=== PATIENT | female | born 1960 | race Caucasian/White ===

== ENCOUNTER 2019-09-22 07:42 | Day surgery (SDC) | payer BC ==
[~2019-09-22 07:42] MED LIST: Lactated Ringers 1,000 ML IV SCH; Lidocaine 2% 5 ML SDV ONE; Midazolam 1 MG/ML 2 ML SDV ONE; Propofol 200 MG/20 ML SDV ONE; Sodium Chloride 0.9% 10 ML SDV IV PRN; Sodium Chloride 0.9% 10 ML Syringe FLUSH PRN; Sodium Chloride 0.9% 2.5 ML Syringe FLUSH PRN; fentaNYL 100 MCG/2 ML SDV ONE
--- NOTE | 2019-09-22 08:47 | PCM.PREANE ---
Preanesthetic Assessment - Anesthesia/Transfusion/Family Hx Anesthesia History: Prior Anesthesia Without Reaction Other Type of Anesthesia Reaction Comment: only after tonsillectomy at age 39 Family History of Anesthesia Reaction: No Transfusion History: No Prior Transfusion(s) Intubation History: Unknown - Review of Systems General: No Symptoms Pulmonary: No Symptoms Cardiovascular: No Symptoms Gastrointestinal: No Symptoms Neurological: No Symptoms Other: Reports: Anxiety - Physical Assessment NPO Status Date: 09/21/19 NPO Status Time: 23:00 Vital Signs: Last Vital Signs Temp 98.1 F 09/22/19 08:12 Pulse 78 09/22/19 08:12 Resp 16 09/22/19 08:12 BP 139/70 09/22/19 08:12 Pulse Ox 94 L 09/22/19 08:12 Height: 5 ft 9 in Weight: 136.531 kg ASA Class: 2 Mental Status: Alert & Oriented x3 Airway Class: Mallampati = 2 Dentition: Reports: Normal Dentition ROM/Head Extension: Full Lungs: Clear to Auscultation, Normal Respiratory Effort Cardiovascular: Regular Rate, Regular Rhythm - Allergies Allergies/Adverse Reactions: Allergies Allergy/AdvReac Type Severity Reaction Status Date / Time No Known Allergies Allergy Verified 09/16/19 14:37 - Blood Blood Available: No - Anesthesia Plan Pre-Op Medication Ordered: None - Acknowledgements Anesthesia Type Planned: General Anesthesia Pt an Appropriate Candidate for the Planned Anesthesia: Yes Alternatives and Risks of Anesthesia Discussed w Pt/Guardian: Yes Pt/Guardian Understands and Agrees with Anesthesia Plan: Yes Additional Comments: PMH: gerd, ibs, morbid obesity PLAN: tiva PreAnesthesia Questionnaire HEENT History: Reports: Allergic Rhinitis, Other (See Below) Other HEENT History: wears glasses/contacts, hx of seasonal allergies Gastrointestinal History: Reports: Chronic Constipation, GERD Other Gastrointestinal History: current dysphagia Psychiatric History: Reports: Depression Other Psychiatric History: just prescribed medication for depression but has not started taking it yet Endocrine/Metabolic History: Reports: Obesity/BMI 30+ - Past Surgical History Head Surgeries/Procedures: Reports: None HEENT Surgical History: Reports: Tonsillectomy GI Surgical History: Reports: Appendectomy Musculoskeletal Surgical History: Reports: Knee Replacement Other Musculoskeletal Surgeries/Procedures:: bilateral TKA with re-do on right and dislocation on right - SUBSTANCE USE Smoking Status *Q: Never Smoker Recreational Drug Use History: No - HOME MEDS Home Medications: Home Meds Cholecalciferol (Vitamin D3) [Vitamin D3] 1,000 unit PO DAILY 09/16/19 [History] Esomeprazole Magnesium [Nexium] 40 mg PO DAILY 09/16/19 [History] Psyllium Husk/Aspartame [Metamucil Fiber Singles Packet] 1 pack PO ASDIRECTED PRN 09/16/19 [History] - CURRENT (IN HOUSE) MEDS Current Meds: Current Medications Lactated Ringer's (Ringers, Lactated) 1,000 mls @ 125 mls/hr IV ASDIRECTED KALPANA Last Admin: 09/22/19 08:31 Dose: 125 mls/hr Sodium Chloride (Saline Flush) 10 ml FLUSH ASDIRECTED PRN PRN Reason: Keep Vein Open Sodium Chloride (Saline Flush) 2.5 ml FLUSH ASDIRECTED PRN PRN Reason: Keep Vein Open Sodium Chloride (Saline Flush) 10 ml FLUSH ASDIRECTED PRN PRN Reason: Keep Vein Open Sodium Chloride (Saline Flush) 2.5 ml FLUSH ASDIRECTED PRN PRN Reason: Keep Vein Open Sodium Chloride (Normal Saline) 10 ml IV ASDIRECTED PRN PRN Reason: IV Use Discontinued Medications Fentanyl (Sublimaze) Confirm Administered Dose 100 mcg .ROUTE .STK-MED ONE Stop: 09/22/19 07:12 Lidocaine (Xylocaine-Mpf 2%) Confirm Administered Dose 5 ml .ROUTE .STK-MED ONE Stop: 09/22/19 07:12 Midazolam HCl (Versed 1 Mg/Ml) Confirm Administered Dose 2 mg .ROUTE .STK-MED ONE Stop: 09/22/19 07:12 Propofol (Diprivan 20 Ml) Confirm Administered Dose 400 mg .ROUTE .STK-MED ONE Stop: 09/22/19 07:12
--- NOTE | 2019-09-22 09:50 | PCM.OPNOTE ---
- General Post-Op/Procedure Note Date of Surgery/Procedure: 09/22/19 Operative Procedure(s): Diagnostic EGD and colonoscopy Findings: Normal EGD, sigmoid colon polyps x 2 at 15 cm Pre Op Diagnosis: Dysphagia, family history of colon cancer Post-Op Diagnosis: Sigmoid colon polyps x 2 Anesthesia Technique: MAC Primary Surgeon: Daxa Rios Condition: Good
[2019-09-22 10:16] VITALS: BP 111/73; PULSE 98
--- NOTE | 2019-09-22 10:52 | PCM.POSTAN ---
POST ANESTHESIA ASSESSMENT - MENTAL STATUS Mental Status: Alert, Oriented - VITAL SIGNS Vital Signs: Last Vital Signs Temp 98.8 F 09/22/19 10:07 Pulse 98 09/22/19 10:07 Resp 16 09/22/19 10:07 BP 111/73 09/22/19 10:07 Pulse Ox 98 09/22/19 10:07 - RESPIRATORY Respiratory Status: Respiratory Rate WNL, Airway Patent, O2 Saturation Stable - CARDIOVASCULAR CV Status: Pulse Rate WNL, Blood Pressure Stable - GASTROINTESTINAL GI Status: No Symptoms - POST OP HYDRATION Hydration Status: Adequate & Stable
--- NOTE | 2019-09-22 10:52 | PCM48HPAN ---
Post Anesthesia Note - EVALUATION WITHIN 48HRS OF ANESTHETIC Vital Signs in Normal Range: Yes Patient Participated in Evaluation: Yes Respiratory Function Stable: Yes Airway Patent: Yes Cardiovascular Function Stable: Yes Hydration Status Stable: Yes Pain Control Satisfactory: Yes Nausea and Vomiting Control Satisfactory: Yes Mental Status Recovered: Yes Vital Signs: Last Vital Signs Temp 98.8 F 09/22/19 10:07 Pulse 98 09/22/19 10:07 Resp 16 09/22/19 10:07 BP 111/73 09/22/19 10:07 Pulse Ox 98 09/22/19 10:07
--- NOTE | 2019-09-23 18:17 | OR ---
SURGEON: DAXA RIOS MD DATE OF PROCEDURE: 09/22/2019 PREOPERATIVE DIAGNOSIS: Reflux, dysphagia, family history of colon cancer. POSTOPERATIVE DIAGNOSES: 1. Normal EGD. 2. Sigmoid colon polyps x2. 3. Prolapsed internal hemorrhoids. PROCEDURE PERFORMED: Diagnostic esophagogastroduodenoscopy and colonoscopy with biopsy and polypectomy. PRIMARY SURGEON: Daxa Rios MD. ANESTHESIA: MAC. INSTRUMENT USED: Olympus endoscope, colonoscope. EXTENT OF EXAM: To the second portion of duodenum, to the cecum. PREPARATION: Good. LIMITATIONS: None. INDICATION FOR EXAMINATION: The patient is a 58-year-old female who presents with complaints of dysphagia. She also has a family history of colon cancer. The decision was made to proceed with diagnostic EGD and colonoscopy. The patient and I discussed the procedure, expected perioperative course, and risks including bleeding, infection, or damage to surrounding structures including perforation. The patient verbalized understanding and wishes to proceed. PROCEDURE IN DETAIL: The patient was brought to the endoscopy suite and placed in the left lateral decubitus position. A time-out was completed verifying the patient's name, age, date of , allergies, and procedure to be performed. Monitored anesthesia care was induced and continuous oxygen was provided via nasal cannula throughout the procedure. A bite block was placed in the patient's mouth. Once adequate sedation was achieved, a well-lubricated endoscope was placed in the patient's mouth and advanced under direct visualization to the second portion of duodenum. This appeared normal and a photograph was taken. The scope was then straightened out and fully withdrawn while examining the color, texture, anatomy, and integrity of mucosa of the upper GI tract. The duodenum appeared normal. A biopsy was taken here using a cold biopsy forceps. The scope was then brought into the stomach and a photograph taken of the pylorus and GE junction, which appeared anatomically normal. The gastric mucosa appeared free of any gross inflammation or ulceration. Biopsies were taken of the gastric antrum, body, and fundus, and sent for histologic review and H. pylori testing. The scope was then brought into the distal esophagus and a photograph was taken of the GE junction. This appeared normal. I took a biopsy of the esophageal mucosa 1 cm above the GE junction. The remainder of the esophagus was free of pathology. The scope was removed and this portion of procedure terminated. A digital rectal exam was performed. The patient was noted to have prolapsed internal hemorrhoids. A well-lubricated endoscope was placed in the patient's rectum and advanced under direct visualization to the level of the cecum. The cecum was identified by both visual and anatomic landmarks. A photograph was taken of the cecal cap as well as with the scope retroflexed within the cecum. Scope was then fully withdrawn while examining the color, texture, anatomy, and integrity of the mucosa from the cecum to the anal canal. The patient was found to have two pedunculated polyps within the distal sigmoid colon. These were right next to one another. They were both removed using a hot loop snare. There were sent to Pathology, labeled as sigmoid colon polyp #1 and #2. The scope was then brought into the rectum and retroflexed to allow visualization of the anal canal opening. This appeared normal and a photograph was taken. The scope was then straightened out and fully withdrawn. The cecum to anus time was 13 minutes. The patient tolerated the procedure well and was transferred to the PACU in stable condition. ENDOSCOPIC DIAGNOSES: 1. Normal EGD. 2. Sigmoid colon polyps x2. 3. Prolapsed internal hemorrhoids. RECOMMENDATIONS: Follow up in clinic in 2 weeks. CAMDEN REBOLLAR /[id number]
== END 2019-09-22 10:40 | disposition home or self-care (01) ==
LOC: MW.SDS 07:42
PROVIDERS: ATTEND Surgery
DX: D12.5 Benign neoplasm of sigmoid colon (principal); K64.8 Other hemorrhoids; K29.80 Duodenitis without bleeding; K21.9 Gastro-esophageal reflux disease without esophagitis; F41.8 Other specified anxiety disorders; E78.5 Hyperlipidemia, unspecified; E66.01 Morbid (severe) obesity due to excess calories; Z68.41 Body mass index [BMI] 40.0-44.9, adult; Z80.0 Family history of malignant neoplasm of digestive organs; Z79.899 Other long term (current) drug therapy
CPT/HCPCS: 43239; 45385; J2001; J2250; J2704; J3010; J7120; 88305; 88312

== ENCOUNTER 2020-10-03 12:22 | Emergency (ER) | payer BC ==
--- NOTE | 2020-10-03 12:39 | EDM.PDOC ---
ED HPI GENERAL MEDICAL PROBLEM - General Chief Complaint: Lower Extremity Injury/Pain Stated Complaint: LEFT LEG PAIN Time Seen by Provider: 10/03/20 12:24 Source of Information: Reports: Patient History Limitations: Reports: No Limitations - History of Present Illness INITIAL COMMENTS - FREE TEXT/NARRATIVE: HISTORY AND PHYSICAL: History of present illness: Patient is a 60-year-old female who presents to the emergency room today with complaints of left meek pain. She states over the weekend she had did a lot of walking around the mall, more physical activity than she is accustomed to. Today she noticed some bruising and soft tissue swelling to the anterior aspect of the left lower extremity. She states she has a friend who is a nurse and told her she was concerned she could have a blood clot or cellulitis. Patient states she has a longstanding history of anxiety and depression and feels "very anxious that something is wrong". Patient denies any fever, chills, headache, change in vision, syncope or near syncope. Denies any chest pain, back pain, shortness of breath or cough. Denies any abdominal pain, nausea, vomiting, diarrhea, constipation or dysuria. Has not noted any blood in urine or stool. Patient has been eating and drinking appropriately. Review of systems: As per history of present illness and below otherwise all systems reviewed and negative. Past medical history: As per history of present illness and as reviewed below otherwise noncontributory. Surgical history: As per history of present illness and as reviewed below otherwise noncon tributory. Social history: See social history for further information Family history: As per history of present illness and as reviewed below otherwise noncontributory. Physical exam: General: Well developed and well nourished 60-year-old female. Alert and orientated x 3. Nontoxic in appearance and in no acute distress. Vital signs have been reviewed by me. Nursing notes were reviewed. HEENT: Atraumatic, normocephalic, pupils equal and reactive bilaterally, negative for conjunctival pallor or scleral icterus, mucous membranes moist, neck supple, nontender, trachea midline. No drooling or trismus noted. No meningeal signs. No hot potato voice noted. Lungs: Clear to auscultation, breath sounds equal bilaterally, chest nontender. Normal work of breathing, no accessory muscles used. Heart: S1S2, regular rate and rhythm without overt murmur Abdomen: Soft, obese, nontender. Negative for masses or costovertebral tenderness. Skin: Superficial bruising to anterior left meek. Chronic discoloration to bilateral ankles. Remaining skin is intact, warm, dry. No lesions or rashes noted. Hematologic: No petechiae or purpra. Mucosa appropriate color and normal nail bed color and refill. Extremities: Atraumatic, moves all extremities per self without difficulty or deficits, strong pedal and pretibial pulses laterally, negative for cords or calf pain. + CMS. Neurovascular unremarkable. Neuro: Awake, alert, oriented. Cranial nerves II through XII unremarkable. Cerebellum unremarkable. Motor and sensory unremarkable throughout. Exam nonfocal. Psychiatric: Mood and affect are appropriate. Normal thought process. Answering questions appropriately. Notes: Lab work and U/S are unremarkable. I have talked with the patient about today's findings, in addition to providing specific details for plan of care. Reassessment at the time of disposition demonstrates that the patient is in no acute distress. The patient is stable for discharge, counseling was provided and we discussed in great detail signs and symptoms that would prompt them to return to the Emergency Department. Medication, follow up and supportive care measures were reviewed and discussed. Voices understanding and is agreeable to plan of care. Denies any further questions or concerns at this time. Diagnostics: CBC, BMP, Venous U/S Therapeutics: None Prescription: None Impression: Lower extremity superficial bruising, left Plan: 1. Today your lab work and ultrasound were reassuring, they were all within normal limits. The pain and bruising are likley due from 'over doing' physical activity over the weekend. Rest, ice and elevate the lower extremities. Make sure you have good supportive tennis shoes for physical activity in the future. 2. Tylenol and or Ibuprofen as needed for discomfort. 3. We encourage you to follow up with your primary care provider and/or recommended specialist in the next few days for re-evaluation and further care/management. If your symptoms should worsen, new symptoms develop or any of the signs and symptoms we discussed should arise please return to the emergency room or call 911 (if needed). Definitive disposition and diagnosis as appropriate pending reevaluation and review of above. left leg Pain Score (Numeric/FACES): 3 - Related Data Allergies Allergy/AdvReac Type Severity Reaction Status Date / Time No Known Allergies Allergy Verified 09/16/19 14:37 Home Meds: Home Meds Cholecalciferol (Vitamin D3) [Vitamin D3] 1,000 unit PO DAILY 09/16/19 [History] Esomeprazole Magnesium [Nexium] 40 mg PO DAILY 09/16/19 [History] Psyllium Husk/Aspartame [Metamucil Fiber Singles Packet] 1 pack PO ASDIRECTED PRN 09/16/19 [History] Past Medical History HEENT History: Reports: Allergic Rhinitis, Other (See Below) Other HEENT History: wears glasses/contacts, hx of seasonal allergies Gastrointestinal History: Reports: Chronic Constipation, GERD Other Gastrointestinal History: current dysphagia Psychiatric History: Reports: Depression Other Psychiatric History: just prescribed medication for depression but has not started taking it yet Endocrine/Metabolic History: Reports: Obesity/BMI 30+ - Past Surgical History Head Surgeries/Procedures: Reports: None HEENT Surgical History: Reports: Tonsillectomy GI Surgical History: Reports: Appendectomy Musculoskeletal Surgical History: Reports: Knee Replacement Other Musculoskeletal Surgeries/Procedures:: bilateral TKA with re-do on right and dislocation on right Social & Family History - Family History Family Medical History: No Pertinent Family History Endocrine/Metabolic: Reports: Obesity/MBI 30+ - Caffeine Use Caffeine Use: Reports: None Review of Systems - Review of Systems Review Of Systems: Comprehensive ROS is negative, except as noted in HPI. ED EXAM, GENERAL - Physical Exam Exam: See Below (See dictation) Course - Vital Signs Last Recorded V/S: Last Vital Signs Temp 97 F 10/03/20 12:35 Pulse 82 10/03/20 13:52 Resp 16 10/03/20 13:52 BP 151/65 H 10/03/20 13:52 Pulse Ox 95 10/03/20 13:52 - Orders/Labs/Meds Labs: Laboratory Tests 10/03/20 10/03/20 Range/Units 12:55 12:55 WBC 8.55 (4.0-11.0) K/uL RBC 4.76 (4.30-5.90) M/uL Hgb 14.1 (12.0-16.0) g/dL Hct 45.0 (36.0-46.0) % MCV 94.5 (80.0-98.0) fL MCH 29.6 (27.0-32.0) pg MCHC 31.3 (31.0-37.0) g/dL RDW Std Deviation 45.9 (28.0-62.0) fl RDW Coeff of Anila 13 (11.0-15.0) % Plt Count 311 (150-400) K/uL MPV 9.70 (7.40-12.00) fL Neut % (Auto) 65.6 (48.0-80.0) % Lymph % (Auto) 25.1 (16.0-40.0) % Gilliam % (Auto) 7.8 (0.0-15.0) % Eos % (Auto) 0.9 (0.0-7.0) % Baso % (Auto) 0.6 (0.0-1.5) % Neut # (Auto) 5.6 (1.4-5.7) K/uL Lymph # (Auto) 2.2 (0.6-2.4) K/uL Gilliam # (Auto) 0.7 (0.0-0.8) K/uL Eos # (Auto) 0.1 (0.0-0.7) K/uL Baso # (Auto) 0.1 (0.0-0.1) K/uL Nucleated RBC % 0.0 /100WBC Nucleated RBCs # 0 K/uL Sodium 145 (136-145) mmol/L Potassium 4.0 (3.5-5.1) mmol/L Chloride 105 (98-107) mmol/L Carbon Dioxide 27.8 (21.0-32.0) mmol/L BUN 20 H (7.0-18.0) mg/dL Creatinine 0.9 (0.6-1.0) mg/dL Est Cr Clr Drug Dosing 68.60 mL/min Estimated GFR (MDRD) > 60.0 ml/min Glucose 105 (74-106) mg/dL Calcium 9.8 (8.5-10.1) mg/dL Departure - Departure Time of Disposition: 13:55 Disposition: Home, Self-Care 01 Clinical Impression: Superficial bruising of lower leg Qualifiers: Encounter type: initial encounter Laterality: left Qualified Code(s): S80.12XA - Contusion of left lower leg, initial encounter - Discharge Information Referrals: Armida Tenorio MD [Primary Care Provider] - Forms: ED Department Discharge Additional Instructions: The following information is given to patients seen in the emergency department who are being discharged to home. This information is to outline your options for follow-up care. We provide all patients seen in our emergency department with a follow-up referral. The need for follow-up, as well as the timing and circumstances, are variable depending upon the specifics of your emergency department visit. If you don't have a primary care physician on staff, we will provide you with a referral. We always advise you to contact your personal physician following an emergency department visit to inform them of the circumstance of the visit and for follow-up with them and/or the need for any referrals to a consulting specialist. The emergency department will also refer you to a specialist when appropriate. This referral assures that you have the opportunity for follow-up care with a specialist. All of these measure are taken in an effort to provide you with optimal care, which includes your follow-up. Under all circumstances we always encourage you to contact your private physician who remains a resource for coordinating your care. When calling for follow-up care, please make the office aware that this follow-up is from your recent emergency room visit. If for any reason you are refused follow-up, please contact the [facility] Emergency Department at and asked to speak to the emergency department charge nurse. [facility] [address] [place], [place] [id number] [place] [address] Thank you for choosing the [facility] emergency department in [place] for your medical needs today. It was a pleasure caring for you. Today you were seen in the emergency department for lower leg pain and bruising. 1. Today your lab work and ultrasound were reassuring, they were all within normal limits. The pain and bruising are likley due from 'over doing' physical activity over the weekend. Rest, ice and elevate the lower extremities. Make sure you have good supportive tennis shoes for physical activity in the future. 2. Tylenol and or Ibuprofen as needed for discomfort. 3. We encourage you to follow up with your primary care provider and/or recommended specialist in the next few days for re-evaluation and further care/management. If your symptoms should worsen, new symptoms develop or any of the signs and symptoms we discussed should arise please return to the emergency room or call 911 (if needed). Sepsis Event Note (ED) - Focused Exam Vital Signs: Vital Signs Temp Pulse Resp BP Pulse Ox 10/03/20 13:52 82 16 151/65 H 95 10/03/20 12:35 97 F 113 H 20 174/81 H 97
[2020-10-03 13:29] LABS: BLOOD UREA NITROGEN,BUN 20 mg/dL (7.0-18.0); CARBON DIOXIDE,CO2 27.8 mmol/L (21.0-32.0); CHLORIDE,CL 105 mmol/L (98-107); GLUCOSE RANDOM 105 mg/dL (74-106); SODIUM,NA 145 mmol/L (136-145)
--- NOTE | 2020-10-03 13:52 | US ---
CLINICAL HISTORY: 60-year-old with left lower extremity pain and bruising. TECHNIQUE: Ag scale, color Doppler, and compression sonography of the left lower extremity deep venous system was performed. COMPARISON: None available FINDINGS: Evaluation is somewhat limited due to patient body habitus. Allowing for this, there is no gross evidence for DVT in the left lower extremity. The deep venous system is compressible with augmentation of flow post compression. Phasic flow is identified. IMPRESSION: 1. No gross evidence for DVT within the left lower extremity. Dictated by Alberto Mak MD @ Oct 03 2020 1:49PM (Electronically Signed)
[2020-10-03 14:06] VITALS: BP 155/78; PULSE 93
== END 2020-10-03 14:05 | disposition home or self-care (01) ==
LOC: MW.ED 12:22
DX: M79.81 Nontraumatic hematoma of soft tissue (principal); K21.9 Gastro-esophageal reflux disease without esophagitis; E66.9 Obesity, unspecified; Z68.42 Body mass index [BMI] 45.0-49.9, adult; Z79.899 Other long term (current) drug therapy
CPT/HCPCS: 36415; 80048; 85025; 93971-26-LT; 93971-LT; 99283; 99284-25

== ENCOUNTER 2024-11-19 08:36 | Day surgery (SDC) | payer MEDICARE, OTHER ==
[2024-11-19] MEDS ORDERED: propofoL 500 MG/50 ML 50 ML ONE (08:53)
[2024-11-19] MEDS: Lactated Ringers 1,000 ML IV SCH (09:10)
[2024-11-19 10:55] VITALS: BP 137/58; PULSE 86
== END 2024-11-19 10:53 | disposition home or self-care (01) ==
LOC: MW.SDS 08:36
PROVIDERS: ATTEND Surgery
DX: Z12.11 Encounter for screening for malignant neoplasm of colon (principal); D12.2 Benign neoplasm of ascending colon; K62.1 Rectal polyp; Z86.0100 Personal history of colon polyps, unspecified; Z80.0 Family history of malignant neoplasm of digestive organs; K64.3 Fourth degree hemorrhoids; F41.8 Other specified anxiety disorders; E78.00 Pure hypercholesterolemia, unspecified; E66.01 Morbid (severe) obesity due to excess calories; Z68.41 Body mass index [BMI] 40.0-44.9, adult; Z79.899 Other long term (current) drug therapy
CPT/HCPCS: 45380; 88305; J2704; J7120; 00811